=== PATIENT | female | born 1940 | race Caucasian/White ===

== ENCOUNTER → 2018-02-13 | Outpatient (CLI) | payer MEDICARE, OTHER | LOC: M.RAD 11:20 | DX: M19.042 Primary osteoarthritis, left hand (principal); M19.041 Primary osteoarthritis, right hand; M25.741 Osteophyte, right hand; M25.742 Osteophyte, left hand; I10 Essential (primary) hypertension; I25.10 Atherosclerotic heart disease of native coronary artery without angina pectoris; E78.2 Mixed hyperlipidemia ==